=== PATIENT | female | born 1995 | race Caucasian/White ===

== ENCOUNTER 2016-08-28 09:22 | Emergency (ER) | payer OTHER ==
[~2016-08-28] VITALS: Ht 160 cm; Wt 80.4 kg
[~2016-08-28 09:22] MED LIST: ENDOCET 5-3251 EACH PO; IBUPROFEN800 MG PO; IRON325 M1 PO; NAPROSYN500 MG PO; NOHOMEMEDS; PRENATAL TABLE1 EAC3 PO; TAMIFLU75 MG PO; TRAMADOL HCL50 MG PO; ZOFRAN ODT4 MG PO; ZOFRAN4 MG PO
[2016-08-28 10:53] LABS: INFLUENZA A VIRAL ANTIGEN NEGATIVE; INFLUENZA B VIRAL ANTIGEN NEGATIVE
[2016-08-28] MEDS ORDERED: AMOXICILLIN500 M1 PO (11:00)
[2016-08-28] MEDS ORDERED: ACETAMINOPHEN500 MG PO (11:00)
[2016-08-28 11:47] VITALS: BP 118/56
== END 2016-08-28 11:45 | disposition home or self-care (01) ==
LOC: EME 09:22
PROVIDERS: Emergency Medicine
DX: J02.0 Streptococcal pharyngitis (principal); R50.9 Fever, unspecified; R06.00 Dyspnea, unspecified; R10.9 Unspecified abdominal pain; R07.9 Chest pain, unspecified; R20.2 Paresthesia of skin; R11.2 Nausea with vomiting, unspecified; M79.604 Pain in right leg; M79.605 Pain in left leg
CPT/HCPCS: 87502; 87651 90; 99281; 99285; J1100; J1885; J2405

== ENCOUNTER 2017-11-16 15:55 | Outpatient (CLI) | payer OTHER ==
[~2017-11-16] VITALS: Ht 160 cm; Wt 94.3 kg
[~2017-11-16 15:55] MED LIST changes: +ACETAMINOPHEN500 MG PO; +AMOXICILLIN500 M1 PO
[2017-11-16 16:08] VITALS: BP 138/85
[2017-11-16] MEDS ORDERED: PRENATAL TABLE1 EAC3 PO (16:15)
[2017-11-16 16:32] LABS: BASOPHIL (%) 0.1 % (0-1); EOSINOPHIL (%) 0.9 % (0-5); EOSINOPHIL COUNT 0.1 K/uL (0-0.3); HEMATOCRIT 35.6 % (36.0-46.0); HEMOGLOBIN 11.8 G/DL (11.9-15.5); IMMATURE GRANULOCYTE (%) 0.6 % (0.0-0.7); LYMPHOCYTE (%) 13.1 % (15-42); LYMPHOCYTE COUNT 1.3 K/uL (1.0-2.8); MCH 29.5 PG (29.0-34.0); MCHC 33.1 G/DL (30.0-36.0); MONOCYTE COUNT 0.5 K/uL (0-0.8); NEUTROPHIL (%) 80.3 % (45-76); NEUTROPHIL COUNT 8.1 K/uL (1.8-6.4); PLATELET COUNT 228 K/uL (156-360); RBC DIS.WIDTH-CV 13.2 % (11.8-14.6); RBC DIS.WIDTH-SD 42.6 % (39-53); WHITE BLOOD COUNT 10.1 K/uL (4.1-10.2)
[2017-11-16 16:54] LABS: ALBUMIN 3.6 G/DL (3.2-4.8); ALKALINE PHOSPHATASE 82 IU/L (3-129); ALT (GPT) 4 IU/L (3-49); AST (GOT) 9 IU/L (2-34); CHLORIDE 104 MEQ/L (99-109); CREATININE 0.5 MG/DL (0.6-1.3); GFR ESTIMATE (CALCULATED) > 59 mL/min/; GLUCOSE 80 mg/dL (70-99); POTASSIUM 3.8 MEQ/L (3.7-5.4); SODIUM 135 MEQ/L (136-147); TOTAL BILIRUBIN 0.2 MG/DL (0.0-1.0); TOTAL PROTEIN 7.2 G/DL (6.4-8.3); UREA NITROGEN (BUN) 6 mg/dL (9-23); URIC ACID 4.9 mg/dL (3.1-9.2)
[2017-11-16 17:39] VITALS: BP 127/67
[2017-11-16 17:59] LABS: UR CREATININE CONCENTRATION 47.8 MG/DL
== END 2017-11-16 18:45 | disposition home or self-care (01) ==
LOC: LDRP-OP 15:55 → 2WEST 15:59 → LDRP-OP 03-12 17:16
PROVIDERS: Advanced Practice Midwife
DX: O36.8120 Decreased fetal movements, second trimester, not applicable or unspecified (principal); O26.892 Other specified pregnancy related conditions, second trimester; H53.8 Other visual disturbances; R42 Dizziness and giddiness; R51 Headache; O34.219 Maternal care for unspecified type scar from previous cesarean delivery; Z3A.27 27 weeks gestation of pregnancy
CPT/HCPCS: 59025; 80053; 82570; 84156; 84550; 85025; G0378

== ENCOUNTER 2018-01-15 22:52 | Outpatient (CLI) | payer OTHER ==
[2018-01-15 23:14] VITALS: BP 124/77
[2018-01-15 23:42] LABS: BASOPHIL (%) 0.3 % (0-1); EOSINOPHIL COUNT 0.1 K/uL (0-0.3); HEMATOCRIT 35.9 % (36.0-46.0); HEMOGLOBIN 11.9 G/DL (11.9-15.5); IMMATURE GRANULOCYTE (%) 0.5 % (0.0-0.7); LYMPHOCYTE (%) 18.7 % (15-42); MCH 28.2 PG (29.0-34.0); MCHC 33.1 G/DL (30.0-36.0); MCV 85.1 FL (83-99); MONOCYTE (%) 8.9 % (3-12); MONOCYTE COUNT 0.9 K/uL (0-0.8); NEUTROPHIL (%) 70.6 % (45-76); NEUTROPHIL COUNT 7.4 K/uL (1.8-6.4); PLATELET COUNT 267 K/uL (156-360); RBC DIS.WIDTH-CV 13.2 % (11.8-14.6); RBC DIS.WIDTH-SD 40.9 % (39-53); RED BLOOD COUNT 4.22 M/uL (3.80-5.20); WHITE BLOOD COUNT 10.5 K/uL (4.1-10.2)
[2018-01-15 23:54] LABS: ALBUMIN 3.5 g/dL (3.2-4.8)
[2018-01-15 23:55] LABS: CHLORIDE 108 mEq/L (99-109); POTASSIUM 4.1 mEq/L (3.7-5.4); SODIUM 140 mEq/L (136-147)
[2018-01-15 23:57] LABS: GLUCOSE 80 mg/dL (70-99); TOTAL PROTEIN 6.9 g/dL (6.4-8.3)
[2018-01-15 23:59] LABS: TOTAL BILIRUBIN 0.2 mg/dL (0.0-1.0)
[2018-01-16] LABS: ALKALINE PHOSPHATASE 153 IU/L (3-129)
[2018-01-16 00:01] LABS: CREATININE 0.6 mg/dL (0.6-1.3); GFR ESTIMATE (CALCULATED) > 59 mL/min/
[2018-01-16 00:02] LABS: AST (GOT) 12 IU/L (2-34); UREA NITROGEN (BUN) 8 mg/dL (9-23)
[2018-01-16 00:03] VITALS: BP 127/71
[2018-01-16 00:04] LABS: ALT (GPT) 8 IU/L (3-49)
[2018-01-16 00:08] LABS: UR CREATININE CONCENTRATION 23.2 MG/DL
[2018-01-16 00:31] LABS: APPEARANCE CLEAR ((CLEAR)); BILIRUBIN NEGATIVE; BLOOD NEGATIVE; COLOR STRAW ((YELLOW)); GLUCOSE (STRIP) NEGATIVE; KETONES NEGATIVE; LEUKOCYTES NEGATIVE; NITRITE NEGATIVE; PROTEIN (STRIP) NEGATIVE; SPECIFIC GRAVITY 1.005 (1.000-1.030); UROBILINOGEN 0.2 MG/DL (0.2-1.0)
== END 2018-01-16 00:41 | disposition home or self-care (01) ==
LOC: LDRP-OP 22:52 → 2WEST 22:53 → LDRP-OP 03-12 21:28
PROVIDERS: Nurse Practitioner
DX: O13.3 Gestational [pregnancy-induced] hypertension without significant proteinuria, third trimester (principal); Z3A.36 36 weeks gestation of pregnancy
CPT/HCPCS: 59025; 80053; 81003; 82570; 84156; 85025; G0378